=== PATIENT | female | born 1975 | race Caucasian/White ===

== ENCOUNTER → 2016-07-10 | Outpatient (CLI) | payer BC, OTHER | LOC: FIMAGING 11:47 | DX: Z12.31 Encounter for screening mammogram for malignant neoplasm of breast (principal) | CPT/HCPCS: G0202 ==

== ENCOUNTER 2016-11-04 06:42 | Emergency (ER) | payer BC, OTHER ==
--- NOTE | 2016-11-04 07:01 | EDPHY ---
H & P Stated Complaint: neck pain gradual onset since HPI/ROS: HPI CHIEF COMPLAINT: Neck pain HISTORY OF PRESENT ILLNESS: This patient 41-year-old female, otherwise healthy no significant medical history she presents emergency room by private vehicle with neck pain. She describes 3 days of progressively worsening neck pain that is described as sharp stabbing in her left shoulder [place]. Does not go down her arm. She denies weakness. Denies trauma. No midline neck pain is paravertebral low cervical spine. Sharp stabbing usually constant with times radiating to left shoulder blade. Not worse with any significant movements. Patient denies any trauma. She does tell me she has old bed pillows. She has never had any if this before. Past Medical History: No significant medical history Past Surgical History: Noncontributory Social History: Denies daily use drugs alcohol tobacco products Family History: Noncontributory ROS REVIEW OF SYSTEMS: A comprehensive 10 point review of systems is otherwise negative aside from elements mentioned in the history of present illness. Exam Constitutional triage nursing summary reviewed, vital signs reviewed, awake/ alert. Eyes normal conjunctivae and sclera, EOMI, PERRLA. HENT normal inspection, atraumatic, moist mucus membranes, no epistaxis, neck supple/ no meningismus, no raccoon eyes. Respiratory clear to auscultation bilaterally, normal breath sounds, no respiratory distress, no wheezing. Cardiovascular rate normal, regular rhythm, no murmur, no edema, distal pulses normal. Gastrointestinal soft, non-tender, no rebound, no guarding, normal bowel sounds, no distension, no pulsatile mass. Genitourinary no CVA tenderness. Musculoskeletal neck: No bruit, No midline cervical spine pain. Paravertebral low cervical spine. Normal engineering group manager strength, normal sensation of both arms, no arm weakness. no midline vertebral tenderness, full range of motion, no calf swelling, no tenderness of extremities, no meningismus, good pulses, neurovascularly intact. Skin pink, warm, & dry, no rash, skin atraumatic. Neurologic awake, alert and oriented x 3, AAOx3, moves all 4 extremities equally, motor intact, sensory intact, CN II-XII intact, normal cerebellar, normal vision, normal speech. Psychiatric normal mood/affect. Heme/Lymph/Immune no lymphadenopathy. Differential Diagnosis: Includes but is not limited to in a particular order, cervical radiculopathy, annular tear, disc herniation, nerve root compression, doubt vertebral artery or carotid artery dissection. Medical Decision Making: Plan for this patient she drove here, she is requesting to have prednisone given to her here in the emergency room. She will also receive a prescription for prednisone, [place] and Valium. She understands to not take [place] and Valium together. As they can cause sedation. Alternate them. Her symptoms are consistent with cervical radiculopathy atraumatic. Recommend following up with her primary care doctor. Also recommend return emergency room if she has severe pain questions or concerns. I explained that if she has ongoing pain this severe debilitating this weekend she should go to [facility] Emergency room for possible MRI however clinically on exam this appears to be cervical radiculopathy. Will try a trial of narcotic pain medicine, Valium. Ibuprofen is not working for her at home. Referred to Neurosurgery. Also recommend following up with primary care doctor Source: Patient - Personal History LMP (Females 10-55): 15-21 Days Ago Current Tetanus/Diphtheria Vaccine: Yes - Medical/Surgical History Other PMH: c section. hypothyroid. implants - Social History Smoking Status: Never smoked Constitutional: Initial Vital Signs Temperature (C) 36.7 C 11/04/16 06:55 Heart Rate 73 11/04/16 06:55 Respiratory Rate 16 11/04/16 06:55 Blood Pressure 114/68 11/04/16 06:55 O2 Sat (%) 97 11/04/16 06:55 O2 Delivery Mode Room Air Allergies/Adverse Reactions: No Known Allergies Allergy (Verified 11/04/16 06:58) Home Medications: Medication Instructions Recorded Diazepam [Valium 5 MG (*)] 5 mg PO TID PRN #10 tab 11/04/16 Hydrocodone/APAP 5/325 [[place] 1 - 2 tab PO Q4H PRN #14 tab 11/04/16 5/325] Levothyroxine 11/04/16 predniSONE 60 mg PO DAILY #15 tab 11/04/16 Departure - Departure Disposition: Home, Routine, Self-Care Clinical Impression: Cervical radiculopathy Condition: Good Instructions: Cervical Radiculopathy (ED), Neck Pain (ED) Additional Instructions: 1. Return emergency room if you have severe pain questions or concerns. 2. Follow-up with her primary care doctor. 3. Ice your neck or use a heating pad you may alternate these. 4. Take ibuprofen for mild pain. 5. Take [place] for severe pain, Valium for muscle relaxation. Both of these can cause sedation. Do not take these medications with Ambien. Do not take these medications with alcohol. They can cause sedation. I recommend alternating these medications not taking them together. 6. Take prednisone burst. 7. Take all of her medications with food not empty stomach. Referrals: Jillian Berkowitz MD [Primary Care Provider] - As per Instructions Edward Gates MD [Medical Doctor] - As per Instructions Prescriptions: Diazepam [Valium 5 MG (*)] 5 mg PO TID PRN #10 tab PRN Reason: Spasms Hydrocodone/APAP 5/325 [[place] 5/325] 1 - 2 tab PO Q4H PRN #14 tab PRN Reason: Pain, Moderate predniSONE 60 mg PO DAILY #15 tab
[2016-11-04] MEDS ORDERED: predniSONE 20 MG TAB PO ONE (07:10)
[2016-11-04 07:11] VITALS: BP 114/68; PULSE 73; RESP 16; TEMP 98.1; O2SAT 97
== END 2016-11-04 07:30 | disposition home or self-care (01) ==
LOC: CED 06:42
DX: M54.12 Radiculopathy, cervical region (principal)

== ENCOUNTER → 2016-11-22 | Outpatient (CLI) | payer OTHER | LOC: FIMAGING 16:50 | PROVIDERS: ATTEND Family Medicine | DX: M50.122 Cervical disc disorder at C5-C6 level with radiculopathy (principal); M50.222 Other cervical disc displacement at C5-C6 level; M48.02 Spinal stenosis, cervical region ==

== ENCOUNTER → 2017-06-25 | Outpatient (CLI) | payer BC | LOC: BMCIMAGING 09:46 | PROVIDERS: ATTEND Podiatrist Foot & Ankle Surgery | DX: M20.11 Hallux valgus (acquired), right foot (principal); M19.071 Primary osteoarthritis, right ankle and foot; M77.31 Calcaneal spur, right foot ==

== ENCOUNTER → 2018-10-14 | Outpatient (CLI) | payer BC | LOC: FIMAGING 10:33 ==